=== PATIENT | female | born 1940 | race Caucasian/White ===

== ENCOUNTER 2016-11-03 19:48 | Emergency (ER) | payer OTHER, MEDICARE ==
[~2016-11-03] VITALS: Ht 160 cm; Wt 102.5 kg
[2016-11-03] MEDS ORDERED: NORVASC5 M1 PO (20:08)
[2016-11-03] MEDS ORDERED: PLAQUENIL200 M1 PO (20:08)
[2016-11-03] MEDS ORDERED: AMITRIPTYLINE H75 M2 PO (20:09)
[2016-11-03] MEDS ORDERED: ARAVA10 M1 PO (20:10)
[2016-11-03] MEDS ORDERED: PANTOPRAZOLE SO40 M1 PO (20:11)
[2016-11-03] MEDS ORDERED: SYNTHROID137 MCG PO (20:11)
--- NOTE | 2016-11-03 20:25 | ED MVC/FALL/TRAUMA COMPLAINT ---
History of Present Illness General Chief Complaint: Fall Stated Complaint: BIBA FALL Source: patient, family, old records, EMS Exam Limitations: no limitations Vital Signs & Intake/Output Vital Signs & Intake/Output Vital Signs Date Time Temp Pulse Resp B/P Pulse O2 O2 Flow FiO2 Ox Delivery Rate 11/03 2021 98.6 89 20 114/68 98 Room Air Allergies Coded Allergies: No Known Allergies (11/03/16) Reconcile Medications Amitriptyline HCl (Unknown Strength) TABLET (Unknown Dose) PO QPM NERVE PAIN (Reported) Amlodipine Besylate (Norvasc) (Unknown Strength) TABLET (Unknown Dose) PO DAILY BP (Reported) Hydroxychlorquine (Plaquenil) 200 MG TABLET 2 TAB PO DAILY RA (Reported) Leflunomide (Arava) (Unknown Strength) TABLET (Unknown Dose) PO DAILY RA ( Reported) Levothyroxine Sodium (Synthroid) (Unknown Strength) TABLET (Unknown Dose) PO DAILY THYROID (Reported) Pantoprazole Sodium (Unknown Strength) TABLET.DR (Unknown Dose) PO DAILY GI ( Reported) Triage Note: BIBA FROM HOME FOR MECHANICAL FALL. PT WAS ON THE TOILET AND SLIPPED ON WATER ON THE FLOOR AND FELL ON LEFT SIDE. C/O LEFT RIB PAIN AND LEFT LEG PAIN. NO OBVIOUS DEFORMITIES. PT ABLE TO REPOSITION IN BED EASILY Triage Nurses Notes Reviewed? yes HPI: Patient was walking to the bathroom when she slipped on a puddle of water. Patient states that she did not feel dizzy or lightheaded nor did she have chest pain or palpitations prior to fall. Patient denies hitting her head and there is no loss of conscious. Patient states that she landed on her left side. Patient is complaining of pain to her left lateral ribs. Patient states that she landed on her arm and her chest went into her arm. Patient also and that her left hip has a little bit of pain in there. Patient states that she was able to get up and walk after the fall. Patient denies any neck pain. Patient states the pain in her ribs is an achy pain sharp pain that increases with deep breath and movement. Patient states that she feels slightly short of breath secondary to the pain. There is no radiation of the pain. Patient rates the pain as 8 out of 10. The pain in her left hip is in the lateral aspect of the hip and there is no radiation. The pain is slightly increases with ambulation. She describes an achy sensation in her hip. She rates that pain as a 4 out of 10. Past History Travel History Traveled to [place] past 21 day No Medical History Any Pertinent Medical History? see below for history Cardiovascular: hypertension, hyperlipidemia Cancer(s): UTERINE CANCER Surgical History Surgical History: hysterectomy Psychosocial History Tobacco Use: Never used ETOH Use: denies use Illicit Drug Use: denies illicit drug use Family History Hx Contributory? No Review of Systems Review of Systems Constitutional: Reports: no symptoms. Respiratory: Reports: see HPI, short of breath. Cardiovascular: Reports: see HPI, chest pain. Musculoskeletal: Reports: see HPI. Neurological/Psychological: Reports: no symptoms. Physical Exam Physical Exam General Appearance: well developed/nourished, alert, awake, moderate distress Head: atraumatic, normal appearance Eyes: Bilateral: PERRL, EOMI. Ears, Nose, Throat, Mouth: hearing grossly normal, moist mucous membrane Neck: normal inspection, supple, full range of motion, no midline tenderness Respiratory: normal breath sounds, no respiratory distress, lungs clear, TENDER TO LEFT LATERAL RIBS Cardiovascular: regular rate/rhythm, normal peripheral pulses Gastrointestinal: normal bowel sounds, soft, non-tender, no organomegaly Back: normal inspection, normal range of motion, no vertebral tenderness Extremities: normal range of motion, pelvis stable Neurologic/Psych: no motor/sensory deficits, awake, alert, oriented x 3, normal mood/affect Skin: intact, normal color, warm/dry Core Measures ACS in differential dx? No Severe Sepsis Present: No Septic Shock Present: No Progress Differential Diagnosis: ext injury, pelvis injury Plan of Care: Orders Procedure Date/time Status Telemetry/Maintenance Porter 11/03 2024 Active EKG 11/03 2024 Active Current Medications Sig/Urbens Start time Last Medication Dose Stop Time Status Admin Oxycodone/ 1 TAB ONCE ONE 11/03 2214 UNVr Acetaminophen 11/03 2215 (Percocet) Diagnostic Imaging: Viewed by Me: Radiology Read. Discussed w/RAD: Radiology Read. Radiology Impression: PATIENT: DEDE GUTIERREZ PRESENT AGE: 76 PATIENT ACCOUNT NO: [id number] : 41 LOCATION: [facility] ORDERING PHYSICIAN: SANDRA WESTBROOK MD SERVICE DATE: 11/03/16-2024 EXAM TYPE: RAD - XRY-RIBS UNILATERAL-LEFT EXAMINATION: XR RIBS, LEFT CLINICAL INFORMATION: Left-sided rib pain following fall. COMPARISON: None. TECHNIQUE: Single frontal view of the chest as well as 5 additional views of the left-sided ribs. FINDINGS: The lungs are hypoinflated, but otherwise clear without focal airspace consolidation. No pleural effusions or pneumothoraces are identified. Cardiomediastinal contours are likely within normal limits for technique. Soft tissues are unremarkable. No acute osseous abnormality is identified. No acute displaced left-sided rib fractures are identified. There is a left subclavian Port-A-Cath terminating within the superior to mid SVC. IMPRESSION: No grossly displaced left-sided rib fractures. Pulmonary hypoinflation. No acute pulmonary abnormality. DICTATED BY: AVI NORWOOD MD DATE/TIME DICTATED:11/03/162142 SOURCING ENGINEER:KARINA DATE/TIME TRANSCRIBED:11/03/162142 CONFIDENTIAL, DO NOT COPY WITHOUT APPROPRIATE AUTHORIZATION. <Electronically signed in Other Vendor System> SIGNED BY: AVI NORWOOD MD 11/03/162152, PATIENT: DEDE GUTIERREZ PRESENT AGE: 76 PATIENT ACCOUNT NO: [id number] : 41 LOCATION: [facility] ORDERING PHYSICIAN: SANDRA WESTBROOK MD SERVICE DATE: 11/03/16 EXAM TYPE: RAD - XRY-AP PELVIS; XRY-HIP 2-3 VIEWS, LEFT EXAMINATION: XR PELVIS XR LEFT HIP CLINICAL INFORMATION: Left hip pain following fall. COMPARISON: None. TECHNIQUE: AP view of the pelvis. AP and frog-leg lateral views of the left hip. FINDINGS: Significantly limited evaluation of the pelvis secondary to patient body habitus. There are no visible grossly displaced pelvic fractures. The bilateral sacroiliac joints appear to be grossly intact. There is no appreciable diastases of the bilateral sacroiliac joints or pubic symphysis. Mild degenerative changes of the left hip joint, without evidence of acute left hip fracture or dislocation. IMPRESSION: Limited exam secondary to patient body habitus. No visible grossly displaced pelvic fractures. No visible fracture or dislocation of the left hip. DICTATED BY: AVI NORWOOD MD DATE/TIME DICTATED:11/03/162128 SOURCING ENGINEER:JOYA DATE/TIME TRANSCRIBED:11/03/162128 CONFIDENTIAL, DO NOT COPY WITHOUT APPROPRIATE AUTHORIZATION. <Electronically signed in Other Vendor System> SIGNED BY: AVI NORWOOD MD 11/03/162146 Initial ED EKG: NSR, RBBB Rhythm Strip: normal sinus rhythm Departure Departure Disposition: HOME OR SELF CARE Condition: Stable Clinical Impression Primary Impression: Chest wall contusion Secondary Impressions: Contusion of left hip Referrals: PATIENT HAS NO PRIMARY CARE DR (PCP/Family) Additional Instructions: Use incentive spirometer. Return if you develops fevers, chills, productive cough shortness of breath or for any concerns. Take Percocet as needed for pain. Percocet is. Constipating so take a stool softener while you're on it. Departure Forms: Customer Survey General Discharge Information Prescriptions: Current Visit Scripts Oxycodone HCl/Acetaminophen (Percocet 5-325 MG Tablet) 1-2 TAB PO Q6P PRN PAIN #20 TAB
--- NOTE | 2016-11-03 21:47 | RADIOLOGY REPORT ---
EXAMINATION: XR PELVIS XR LEFT HIP CLINICAL INFORMATION: Left hip pain following fall. COMPARISON: None. TECHNIQUE: AP view of the pelvis. AP and frog-leg lateral views of the left hip. FINDINGS: Significantly limited evaluation of the pelvis secondary to patient body habitus. There are no visible grossly displaced pelvic fractures. The bilateral sacroiliac joints appear to be grossly intact. There is no appreciable diastases of the bilateral sacroiliac joints or pubic symphysis. Mild degenerative changes of the left hip joint, without evidence of acute left hip fracture or dislocation. IMPRESSION: Limited exam secondary to patient body habitus. No visible grossly displaced pelvic fractures. No visible fracture or dislocation of the left hip.
--- NOTE | 2016-11-03 21:53 | RADIOLOGY REPORT ---
EXAMINATION: XR RIBS, LEFT CLINICAL INFORMATION: Left-sided rib pain following fall. COMPARISON: None. TECHNIQUE: Single frontal view of the chest as well as 5 additional views of the left-sided ribs. FINDINGS: The lungs are hypoinflated, but otherwise clear without focal airspace consolidation. No pleural effusions or pneumothoraces are identified. Cardiomediastinal contours are likely within normal limits for technique. Soft tissues are unremarkable. No acute osseous abnormality is identified. No acute displaced left-sided rib fractures are identified. There is a left subclavian Port-A-Cath terminating within the superior to mid SVC. IMPRESSION: No grossly displaced left-sided rib fractures. Pulmonary hypoinflation. No acute pulmonary abnormality.
[2016-11-03] MEDS ORDERED: PERCOCET 5-3251 EACH PO (22:05)
[2016-11-03 22:34] VITALS: BP 120/70
== END 2016-11-03 22:35 ==
LOC: ERH 19:48
DX: S20.212A Contusion of left front wall of thorax, initial encounter (principal); S70.02XA Contusion of left hip, initial encounter; W01.0XXA Fall on same level from slipping, tripping and stumbling without subsequent striking against object, initial encounter
CPT/HCPCS: 71100-LT; 72170; 73502-LT; 93005; 93010